=== PATIENT | female | born 1985 | race Caucasian/White ===

== ENCOUNTER 2016-08-29 16:30 | Observation (INO) | payer MEDICAID ==
[~2016-08-29] VITALS: Ht 170.2 cm; Wt 89.4 kg
[2016-08-29] MEDS ORDERED: BRE5 PO (17:05)
[2016-08-29] MEDS ORDERED: PREN-546 PO (17:05)
[2016-08-29 17:13] VITALS: BP 109/72
[2016-08-29] MEDS: NIFEdipine 10 MG CAPLF PO SCH ×2 (21:19→21:43)
[2016-08-29] MEDS ORDERED: NIFEdipine 10 MG CAPLF ONE ×3 (21:21→22:06)
[2016-08-29] MEDS: LACTATED RINGERS 1,000 ML IV SCH (21:47)
[2016-08-29 22:45] LABS: BASOPHILS # (AUTO) 0.1 K/uL (0.00-0.22); BASOPHILS % (AUTO) 0.5 % (0.0-2.0); EOSINOPHILS # (AUTO) 0.2 K/uL (0-0.4); EOSINOPHILS % (AUTO) 1.4 % (0.0-4.0); HEMATOCRIT 38.1 % (36-48); HEMOGLOBIN 12.2 g/dL (12.0-16.0); LYMPHOCYTES # (AUTO) 2.2 K/uL (2.5-16.5); LYMPHOCYTES % (AUTO) 19.5 % (20.5-51.1); MEAN CORPUSCULAR HEMOGLOBIN 28 pg (27-31); MEAN CORPUSCULAR HGB CONC 32 g/dL (33-37); MEAN CORPUSCULAR VOLUME 87 fL (80-94); MONOCYTES # (AUTO) 0.6 K/uL (0.8-1.0); MONOCYTES % (AUTO) 5.5 % (1.7-9.3); NEUTROPHILS # (AUTO) 8.4 K/uL (1.8-7.7); NEUTROPHILS % (AUTO) 73.1 % (42.2-75.2); PLATELET COUNT (AUTO) 175 K/uL (140-450); RED BLOOD CELL COUNT(AUTO) 4.36 MIL/uL (4.20-5.40); RED CELL DISTRIBUTION WIDTH 13.6 % (11.6-13.7); WHITE BLOOD COUNT (AUTO) 11.5 K/uL (4.8-10.8)
[2016-08-29 22:56] LABS: APPEARANCE,URINE CLEAR (CLEAR); BILIRUBIN,URINE NEGATIVE (NEGATIVE); BLOOD, URINE NEGATIVE (NEGATIVE); COLOR,URINE YELLOW (YELLOW); LEUKOCYTE ESTERASE ,URINE NEGATIVE (NEGATIVE); NITRITE, URINE NEGATIVE (NEGATIVE); PROTEIN,URINE NEGATIVE (NEGATIVE); UGLUCOSE NEGATIVE (NEGATIVE); UROBILINOGEN,URINE 0.2 EU/dL (0.2 - 1)
[2016-08-29 23:07] LABS: PROTHROMBIN TIME 9.7 secs (10.8-13.4)
[2016-08-29 23:29] LABS: BACTERIA,URINE None Seen /HPF (None Seen); RBC,URINE 0-5 (RARE) /HPF (0-5); SQUAMOUS EPITHELIAL CELL,UR 0-3 (FEW) /LPF (0-3 (FEW)); WBC,URINE 0-5 (RARE) /HPF (0-5)
[2016-08-30] MEDS ORDERED: AMPICILLIN 2,000 MG in NACL 0.9% 100 ML IV SCH ×2
[2016-08-30] MEDS ORDERED: NIFEdipine 10 MG CAPLF PO SCH
[2016-08-30] MEDS ORDERED: NIFEdipine 10 MG CAPLF ONE ×3 (00:42→08:22)
[2016-08-30] MEDS: LACTATED RINGERS 1,000 ML IV SCH (06:00)
== END 2016-08-30 11:16 | disposition home or self-care (01) ==
LOC: MLD 16:30 → MFCC 08-30 00:30
PROVIDERS: ADMIT Obstetrics & Gynecology; ATTEND Obstetrics & Gynecology
DX: O26.892 Other specified pregnancy related conditions, second trimester (principal); R10.9 Unspecified abdominal pain; Z3A.27 27 weeks gestation of pregnancy
CPT/HCPCS: 36415; 51702; 76805; 81001; 85025; 85379; 85384; 85610; 85730; 96360; 96361; G0378; J7120; Q0092

== ENCOUNTER 2016-11-04 17:30 | Inpatient (IN) | payer MEDICAID ==
[~2016-11-04] VITALS: Ht 172.7 cm; Wt 77.6 kg
[~2016-11-04 17:30] MED LIST: PREN-546 PO
[2016-11-04] MEDS ORDERED: OXYTOCIN 10 UNITS/ML VIAL IM PRN ×2 (17:55→23:35)
[2016-11-04] MEDS ORDERED: OXYTOCIN 20 UNITS/LR PREMIX 1,000 ML IV SCH (17:55)
[2016-11-04] MEDS ORDERED: LACTATED RINGERS 1,000 ML IV SCH (17:55)
[2016-11-04 18:40] VITALS: BP 144/88
[2016-11-04 19:23] LABS: HEMATOCRIT 36.4 % (36-48); HEMOGLOBIN 12.4 g/dL (12.0-16.0); MEAN CORPUSCULAR HEMOGLOBIN 29 pg (27-31); MEAN CORPUSCULAR HGB CONC 34 g/dL (33-37); MEAN CORPUSCULAR VOLUME 86 fL (80-94); PLATELET COUNT (AUTO) 102 K/uL (140-450); RED BLOOD CELL COUNT(AUTO) 4.26 MIL/uL (4.20-5.40); RED CELL DISTRIBUTION WIDTH 13.3 % (11.6-13.7); WHITE BLOOD COUNT (AUTO) 9.8 K/uL (4.8-10.8)
[2016-11-04 19:28] LABS: APPEARANCE,URINE CLEAR (CLEAR); BILIRUBIN,URINE NEGATIVE (NEGATIVE); BLOOD, URINE 2+ (NEGATIVE); COLOR,URINE YELLOW (YELLOW); LEUKOCYTE ESTERASE ,URINE NEGATIVE (NEGATIVE); NITRITE, URINE NEGATIVE (NEGATIVE); PROTEIN,URINE 1+ (NEGATIVE); UGLUCOSE NEGATIVE (NEGATIVE); UROBILINOGEN,URINE 0.2 EU/dL (0.2 - 1)
[2016-11-04 19:41] LABS: BAND % (MANUAL) 1 % (0-8); LYMPHOCYTES % (MANUAL) 20 % (20-46); MONOCYTES % (MANUAL) 6 % (5-12); NEUTROPHILS % (MANUAL) 73 (43-65); PLATELET ESTIMATE DECREASED
[2016-11-04 19:46] LABS: BACTERIA,URINE FEW /HPF (None Seen); RBC,URINE 11-20 (MOD) /HPF (0-5); WBC,URINE NONE SEEN /HPF (0-5)
[2016-11-04] MEDS ORDERED: NALBUPHINE HYDROCHLORIDE 10 MG/ML VIAL ONE (22:11)
[2016-11-04] MEDS ORDERED: OXYTOCIN 10 UNITS/ML VIAL ONE (22:23)
[2016-11-04] MEDS ORDERED: LIDOCAINE 1% 50 ML ONE (22:23)
[2016-11-04] MEDS ORDERED: OXYTOCIN 20 UNITS/LR PREMIX 1,000 ML IV ONE (22:24)
[2016-11-04] MEDS ORDERED: HYDROcodone/APAP 5/325 MG 1 TAB TAB PO PRN (23:35)
[2016-11-04] MEDS ORDERED: METHYLERGONOVINE 0.2 MG/ML AMP IM PRN (23:35)
[2016-11-04] MEDS ORDERED: IBUPROFEN 800 MG TAB PO PRN (23:35)
[2016-11-04] MEDS ORDERED: WITCH HAZEL 40 PAD PACKAGE TP PRN (23:35)
[2016-11-04] MEDS ORDERED: oxyCODONE/APAP 5/325 MG 1 TAB TAB PO PRN (23:35)
[2016-11-04] MEDS ORDERED: TEMAZEPAM 15 MG CAP PO PRN (23:35)
[2016-11-04] MEDS ORDERED: BENZOCAINE/MENTHOL 20%-0.5% 60 GM CAN TP PRN (23:35)
[2016-11-04] MEDS ORDERED: MEASLES, MUMPS, AND RUBELLA 1 VIAL SQVAC PRN (23:35)
[2016-11-04] MEDS ORDERED: HYDROcodone/APAP 5/325 MG 1 TAB TAB ONE (23:52)
[2016-11-05 06:00] LABS: HEMATOCRIT 38.3 % (36-48); HEMOGLOBIN 12.7 g/dL (12.0-16.0)
--- NOTE | 2016-11-05 09:00 | NUR ---
PATIENT HAS BEEN SCREENED AND CATEGORIZED LOW NUTRITION RISK. PATIENT WILL BE SEEN WITHIN 7 DAYS OF ADMISSION. 11/11/[address]
[2016-11-05] MEDS ORDERED: DOCUSATE SOD/SENNA 50/8.6 MG 1 TAB PO SCH (21:00)
== END 2016-11-06 16:20 | disposition home or self-care (01) | DRG 560 ==
LOC: OBSVTOIN 17:30 → MLD 17:30 → MFCC 11-05 01:00
PROVIDERS: ADMIT Obstetrics & Gynecology; ATTEND Obstetrics & Gynecology
PROC: 10E0XZZ Delivery of Products of Conception, External Approach (ICD-10-PCS; principal; 2016-11-04)
PROC: 0KQM0ZZ Repair Perineum Muscle, Open Approach (ICD-10-PCS; 2016-11-04)
DX: O70.1 Second degree perineal laceration during delivery (principal); Z37.0 Single live birth; Z3A.37 37 weeks gestation of pregnancy
CPT/HCPCS: 36415; 59409; 81001; 85018; 85025; 86886; 86900; 86901; 90715; J2001; J2300; J2590; J7120